=== PATIENT | male | born 1990 | race African-American/Black ===

== ENCOUNTER 2017-04-28 09:26 | Emergency (ER) | payer OTHER ==
[~2017-04-28] VITALS: Ht 185.4 cm; Wt 68.0 kg
== END 2017-04-28 10:20 | disposition home or self-care (01) ==
LOC: CFTX 09:26 → CED 09:26 → CFTX 09:53
DX: H65.91 Unspecified nonsuppurative otitis media, right ear (principal); R03.0 Elevated blood-pressure reading, without diagnosis of hypertension
CPT/HCPCS: 99282